=== PATIENT | female | born 1955 | race Caucasian/White ===

== ENCOUNTER → 2024-04-24 12:38 | Outpatient (REF) | payer MEDICARE, BC, SELFPAY | LOC: HWRCS 12:38 | PROVIDERS: ATTENDING PHYSICIAN Physician Assistant | DX: R01.1 Cardiac murmur, unspecified (principal) | CPT/HCPCS: 93306 ==

== ENCOUNTER → 2024-07-31 15:12 | Outpatient (REF) | payer MEDICARE, BC, SELFPAY | LOC: HWRAD 15:12 | PROVIDERS: ATTENDING PHYSICIAN Physician Assistant; REFERRING PHYSICIAN Orthopaedic Surgery | DX: M25.551 Pain in right hip (principal); R10.31 Right lower quadrant pain | CPT/HCPCS: 72100; 73502 ==

== ENCOUNTER → 2024-10-24 09:33 | Outpatient (REF) | payer MEDICARE, BC, SELFPAY | LOC: HWWDC 09:33 | PROVIDERS: ATTENDING PHYSICIAN Physician Assistant | DX: Z12.31 Encounter for screening mammogram for malignant neoplasm of breast (principal); N95.9 Unspecified menopausal and perimenopausal disorder | CPT/HCPCS: 77063; 77067; 77080 ==

== ENCOUNTER 2024-12-19 11:46 | Emergency (ER) | payer MEDICARE, BC, SELFPAY ==
[2024-12-19 11:50] VITALS: BP 147/87
[2024-12-19 12:15] LABS: Hematocrit 39.1 % (37.0-47.0); Hemoglobin 12.9 g/dL (12.0-16.0); Mean Corp Hgb Conc. 33.0 g/dL (33.0-37.0); Mean Corpuscular Volume 87.3 fL (81.0-99.0); Nucleated Red Blood Cells % 0 %; Platelet Count 210 10^3/uL (130-400); Red Cell Dist. Width 13.0 % (11.5-14.5)
[2024-12-19 12:37] LABS: ALT (SGPT) 26 U/L (0-35); AST (SGOT) 24 U/L (14-36); Albumin 4.9 g/dl (3.5-5.0); Alkaline Phosphatase 75 U/L (38-126); Blood Urea Nitrogen 23 mg/dl (7-17); Calcium 9.7 mg/dl (8.4-10.2); Carbon Dioxide 26 mmol/L (22-30); Chloride 106 mmol/L (98-107); Glucose 162 mg/dl (70-99); Potassium 4.2 mmol/L (3.5-5.1); Sodium 140 mmol/L (135-145); Total Protein 7.8 g/dl (6.3-8.2); eGFR > 60.00
--- NOTE | 2024-12-19 13:32 | ED.GENMED ---
Addendum entered and electronically signed by Symone Clayton DO 12/19/24 18:35:
TSH within normal limits
Original Note:
History of Present Illness
General
Chief Complaint: Fatigue
Time Seen by Provider: 12/19/24 13:14
Nursing documentation reviewed up to this point in time: agreed with
History of Present Illness
History of Present Illness:
17-year-old female presents the ER for evaluation of generalized fatigue which has been present for at least the last 10 days if not longer. Patient reports that she is currently undergoing weaning of her psychiatric medications with her
psychiatrist. She has been still routinely taking her Klonopin. She recently completed a course of antibiotics after having tooth extraction. She denies any complaint of dental pain or mouth discomfort today. Patient denies fevers or chills.
She states she has been sleeping well. She reports that she vomited 3 days ago after she had felt a stitch loosening in her mouth. She has not had had any other emesis. She reports having normal bowel movements today. She denies any urinary
discomforts. She denies suicidal or homicidal thought. She admittedly does not exercise regularly but does work as a breakfast server occasionally.
Review of Systems
Review of Systems
Allergies reviewed?: Yes
Phy Exam
Physical Exam
Physical Exam:
Patient is awake, alert, appears in no acute distress, head is NCAT, PERRL, EOMI mucous membranes moist, no stridor, no trismus, no buccal swelling, no sublingual swelling, conjunctiva pink, heart regular rate and rhythm without murmurs or ectopy,
lungs are clear to auscultation without wheezes rales or rhonchi, no JVD, abdomen is soft and nontender on palpation, extremities without edema, GCS is 15, flat affect, good eye contact
Course
Orders/Labs/Results
Orders:
Orders
12/19/24 11:59
Complete Blood Count/With Diff Urgent
Comprehensive Metabolic Panel Urgent
TSH Urgent
Comment: ADD ON
12/19/24 14:09
Urinalysis Reflex To Culture Urgent
Date Specimen was Collected: 12/19/24
Time Specimen was Collected: 14:06
Urine Microscopic Reflex Cult Urgent
Urine Culture Urgent
SANIA Source: U
Specimen Description:
Date Specimen was Collected: 12/19/24
Time Specimen was Collected: 14:06
12/19/24 14:14
Add On- LAB Urgent
Tests Added?: tsh
TSH Reflex To Free T4 Urgent
Abnormal Lab Results
12/19/24 12/19/24
11:59 14:09
WBC 4.5 L 10^3/uL
(4.8-10.8)
MPV 12.2 H fL
(7.4-10.4)
BUN 23 H mg/dl
(7-17)
Glucose 162 H mg/dl
(70-99)
Leukocyte Esterase Rfl 2+ A
(Negative)
12/19/24 11:59
12/19/24 11:59
CBC without significant dyscrasia. Electrolytes within normal limits with mild elevation in BUN, creatinine preserved.
UA does not appear infected
Vital Signs
Initial and Last Documented VS:
Initial Vital Signs
Temp Pulse Resp BP Pulse Ox
98.3 F 87 18 147/87 97
12/19/24 11:50 12/19/24 11:50 12/19/24 11:50 12/19/24 11:50 12/19/24 11:50
Last Documented Vital Signs
Temp Pulse Resp BP Pulse Ox
98.3 F 76 18 118/69 95
12/19/24 11:50 12/19/24 14:12 12/19/24 14:12 12/19/24 14:12 12/19/24 14:12
*Pulse Oximetry
SaO2: 97
Patient hypoxic: no
*Critical Care Note
Total Time (30-74mins, 75-104mins- exclusive of procedures): Not Applicable
Update Note
Update Note:
I discussed with patient and present bedside very reassuring labs. Would suspect multifactorial etiology of patient's generalized fatigue, in particular given normal CBC. Will obtain urinalysis. Await results.
1500: Patient now more bright and alert, speech is clear. I reviewed very reassuring urinalysis with patient and at bedside. I discussed with them and for discharge with need for continued follow-up with psychiatry for continued medication
management. I encourage patient to engage in more outdoor activity, to keep herself physically active and stimulated. Patient and present bedside agree with plan of care and have no questions prior to d/c
ED Attending Note
-
Portions of this chart may have been created with voice recognition software.� Occasional wrong word or��sound alike� substitutions may have occurred due to the inherent limitations of voice recognition software.
Discharge Plan
Departure
Patient Disposition: Home (Routine Discharge)
Date of Disposition: 12/19/24
Time of Disposition: 15:03
Patient with high blood pressure during this ER visit?: Yes
Discharge Problem:
Fatigue
Instructions: Fatigue (DC), BLOOD PRESSURE
Prescriptions:
No Action
sertraline 100 MG tablet
100 mg PO DAILY
omeprazole 40 MG capsule,delayed release(DR/EC)
40 mg PO DAILY
rosuvastatin 5 MG tablet
5 mg PO QPM
Referrals:
UNKNOWN - PT DOES,NOT KNOW [Family Provider]
Activity Restrictions/Additional Instructions:
Please follow-up with your psychiatrist to discuss your symptoms of fatigue as this may be related to your medications. Please also engage with more physical activity. Please follow-up with your primary care physician for remaining test
results-Thyroid studies are pending at time of discharge but not felt to be a significant cause of today's symptoms. Return to the ED for any concerns
Interventions
Interventions:
*Risk Screen - Suicide Last Done: 12/19/24 11:50
*General Assessment Last Done: 12/19/24 11:50
*Neglect/Abuse Screening Last Done: 12/19/24 11:50
Discharge Date and Time
Print Language: SAMI
[2024-12-19 14:10] VITALS: BMI 23.1
[2024-12-19 14:12] VITALS: BP 118/69
[2024-12-19 14:19] LABS: Urine Character Clear (Clear)
[2024-12-19 14:47] LABS: Urine Red Blood Cell 0-2 /HPF (0-2); Urine Urothelial Cell 0-2 /LPF (FEW)
[2024-12-19 16:12] LABS: TSH 1.58 uIU/ml (0.47-4.68)
== END 2024-12-19 15:17 | disposition home or self-care (01) ==
LOC: EMR 11:46
PROVIDERS: Emergency Medicine; EMERGENCY PHYSICIAN Emergency Medicine
DX: R53.83 Other fatigue (principal)
CPT/HCPCS: 99283; 80053; 81003; 81015; 84443; 85025; 87086